=== PATIENT | male | born 1975 | race Caucasian/White ===

== ENCOUNTER 2018-06-10 20:04 | Inpatient (IN) | payer OTHER ==
[2018-06-10 20:26] LABS: ADD MAN DIFF? NO
[2018-06-10 20:31] LABS: WHITE BLOOD COUNT 9.8 10^3/ul (4.8-10.8)
[2018-06-10 20:31] LABS: BASOPHILS % 0.3 % (0.0-2.0); EOSINOPHILS % 0.4 % (0.0-7.0); HEMATOCRIT 44.5 % (42.0-52.0); HEMOGLOBIN 15.2 g/dl (14.0-18.0); LYMPHOCYTES # 0.7 10^3/ul (0.8-2.9); LYMPHOCYTES % 7.4 % (15.0-51.0); MEAN CORPUSCULAR HEMOGLOBIN 29.3 pg (29.0-33.0); MEAN CORPUSCULAR HGB CONC 34.2 g/dl (32.0-37.0); MEAN CORPUSCULAR VOLUME 85.9 fl (82.0-101.0); MEAN PLATELET VOLUME 11.4 fl (7.4-10.4); MONOCYTE # 0.3 10^3/ul (0.3-0.9); MONOCYTES % 2.7 % (0.0-11.0); NEUTROPHIL # 8.7 10^3/ul (1.6-7.5); NEUTROPHILS % 88.9 % (39.0-77.0); PLATELET COUNT 122 10^3/UL (140-415); POSITIVE DIFF @See below; RED BLOOD COUNT 5.18 10^6/ul (4.70-6.10)
[2018-06-10] MEDS: SODIUM CHLORIDE 0.9% 1L BAG IV* (20:33)
[2018-06-10] MEDS: CEFEPIME 2GM/50 ML (PMX) 50 ML IVPB (20:34)
[2018-06-10] MEDS: ONDANSETRON 4 MG INJ IV (20:37)
[2018-06-10 20:48] LABS: ALANINE AMINOTRANSFERASE 116 IU/L (13-69); ALBUMIN 4.3 g/dl (3.3-4.9); ALBUMIN/GLOBULIN RATIO 1.26; ALKALINE PHOSPHATASE 112 IU/L (42-121); ANION GAP 16 (8-16); ASPARTATE AMINO TRANSFERASE 88 IU/L (15-46); BILIRUBIN,INDIRECT 1.4 mg/dl (0-1.1); BILIRUBIN,TOTAL 1.4 mg/dl (0.2-1.3); BLOOD UREA NITROGEN 14 mg/dl (7-20); CALCIUM 8.9 mg/dl (8.4-10.2); CARBON DIOXIDE 23 mmol/L (21-31); CHLORIDE 100 mmol/L (97-110); CREATININE 0.93 mg/dl (0.61-1.24); GLUCOSE 109 mg/dl (70-220); POTASSIUM 3.9 mmol/L (3.5-5.1); SODIUM 135 mmol/L (135-144); TOTAL PROTEIN 7.7 g/dl (6.1-8.1)
[2018-06-10 20:55] LABS: INR 1.05; PROTIME 13.8 Sec (11.9-14.9); PT RATIO 1.1
[2018-06-10 20:56] LABS: PARTIAL THROMBOPLASTIN TIME 30.2 Sec (25.0-35.0)
[2018-06-10 20:58] LABS: TROPONIN-I < 0.010 ng/ml (0.000-0.120)
[2018-06-10] MEDS: KETOROLAC 30 MG INJ IV (20:59)
[2018-06-10 21:07] LABS: LACTIC ACID 1.4 mmol/L (0.5-2.0)
[2018-06-10 22:02] LABS: LIPASE 66 U/L (23-300)
[2018-06-10 22:41] LABS: LACTIC ACID 0.9 mmol/L (0.5-2.0)
[2018-06-10] MEDS ORDERED: NACL 0.9% 3 ML SYG IV (23:00)
[2018-06-10] MEDS ORDERED: ONDANSETRON 4 MG INJ IV (23:00)
[2018-06-10] MEDS ORDERED: LORAZEPAM 2 MG INJ IV (23:00)
[2018-06-10] MEDS ORDERED: DOCUSATE SODIUM 100 MG CAP PO (23:00)
[2018-06-10] MEDS ORDERED: BISACODYL (EC) 5 MG TAB PO (23:00)
[2018-06-10] MEDS: metroNIDAZOLE 500 MG/NS (PMX) 100 ML IVPB (23:12)
[2018-06-11] MEDS: ACETAMINOPHEN 325 MG TAB PO (01:01)
[2018-06-11 01:29] LABS: LACTIC ACID 0.9 mmol/L (0.5-2.0)
[2018-06-11] MEDS: SOD CHLORIDE 0.9% 500 ML IV (01:39)
[2018-06-11] MEDS: SOD CHLORIDE 0.9% 1,000 ML IV ×4 (01:40→19:48)
[2018-06-11] MEDS: KETOROLAC 30 MG INJ IV (02:14)
[2018-06-11] MEDS: PIPER-TAZO 3.375 GM IV (PMX) 100 ML IVPB ×4 (02:14→19:45)
[2018-06-11 05:56] LABS: HAAIG REFLEX REFLEX FILED
[2018-06-11 06:00] LABS: WHITE BLOOD COUNT 7.5 10^3/ul (4.8-10.8)
[2018-06-11 06:00] LABS: HEMATOCRIT 36.4 % (42.0-52.0); HEMOGLOBIN 12.2 g/dl (14.0-18.0); MEAN CORPUSCULAR HEMOGLOBIN 29.6 pg (29.0-33.0); MEAN CORPUSCULAR HGB CONC 33.5 g/dl (32.0-37.0); MEAN CORPUSCULAR VOLUME 88.3 fl (82.0-101.0); MEAN PLATELET VOLUME 11.9 fl (7.4-10.4); PLATELET COUNT 102 10^3/UL (140-415); POSITIVE DIFF @See below; RED BLOOD COUNT 4.12 10^6/ul (4.70-6.10); RED CELL DISTRIBUTION WIDTH 13.2 % (11.5-14.5)
[2018-06-11 06:32] LABS: ADD MAN DIFF? YES
[2018-06-11 06:44] LABS: GAMMA GLUTAMYL TRANSPEPTIDASE 113 IU/L (0-50)
[2018-06-11 07:06] LABS: ALANINE AMINOTRANSFERASE 82 IU/L (13-69); ALBUMIN/GLOBULIN RATIO 1.07; ALKALINE PHOSPHATASE 71 IU/L (42-121); ANION GAP 13 (8-16); ASPARTATE AMINO TRANSFERASE 58 IU/L (15-46); BILIRUBIN,INDIRECT 1.1 mg/dl (0-1.1); BILIRUBIN,TOTAL 1.1 mg/dl (0.2-1.3); BLOOD UREA NITROGEN 17 mg/dl (7-20); CALCIUM 7.9 mg/dl (8.4-10.2); CARBON DIOXIDE 24 mmol/L (21-31); CHLORIDE 107 mmol/L (97-110); CHOL/HDL RATIO 5.9 RATIO; CHOLESTEROL 118 mg/dl (100-200); GLUCOSE 102 mg/dl (70-220); HDL CHOLESTEROL 20 mg/dl (27-67); LDL CHOLESTEROL,CALCULATED 60 mg/dl; MAGNESIUM 1.8 mg/dl (1.7-2.5); POTASSIUM 4.3 mmol/L (3.5-5.1); SODIUM 140 mmol/L (135-144); TOTAL PROTEIN 5.8 g/dl (6.1-8.1); TRIGLYCERIDES 189 mg/dl (0-149)
[2018-06-11 07:12] LABS: HEPATITIS B SURFACE ANTIGEN NEGATIVE (NEGATIVE)
[2018-06-11 07:30] LABS: HEPATITIS B CORE ANTIBODY NEGATIVE (NEGATIVE); HEPATITIS C VIRAL ANTIBODY NEGATIVE (NEGATIVE)
[2018-06-11 07:48] LABS: ANISOCYTOSIS 1+ (0-0); BAND NEUTROPHILS % (M) 27 % (0-4); BURR CELLS 1+ (0-0); GIANT THROMBO% (M) 1 % (0-0); LYMPHOCYTES #M 0.2 10^3/ul (0.8-2.9); LYMPHOCYTES % (M) 3 % (15-51); MONOCYTE #M 0.4 10^3/ul (0.3-0.9); MONOCYTES % (M) 6 % (0-11); PLATELET ESTIMATE DECREASED; POIKILOCYTOSIS 1+ (0-0); POLYCHROMASIA 1+ (0-0); SEG NEUT #M 4.9 10^3/ul (1.6-7.5); SEGMENTED NEUTROPHILS (M) % 63 % (39-77); SMUDGE%M 2 % (0-0)
[2018-06-11 08:00] LABS: HEMOGLOBIN A1C 5.3 % (0-5.9)
[2018-06-11] MEDS: NICOTINE (14 MG/24 HR) PATCH TRANSDERM (09:48)
[2018-06-11] MEDS: NICOTINE POLACRILEX 2 MG GUM BUCCAL (09:49)
[2018-06-11] MEDS: HYDROmorphONE 0.5 MG/0.5 ML SYG IV (09:54)
[2018-06-11 13:18] LABS: ADD UMIC YES; UR ASCORBIC ACID NEGATIVE (NEGATIVE); UR BILIRUBIN (Dip) 1+ mg/dL (NEGATIVE); UR BLOOD (Dip) NEGATIVE (NEGATIVE); UR CLARITY CLEAR (CLEAR); UR COLOR AMBER (YELLOW); UR GLUCOSE (Dip) NEGATIVE (NEGATIVE); UR KETONES (Dip) 1+ mg/dL (NEGATIVE); UR LEUKOCYTE ESTERASE (Dip) NEGATIVE Leu/ul (NEGATIVE); UR MUCUS FEW /HPF (NONE SEEN); UR NITRITE (Dip) NEGATIVE (NEGATIVE); UR RBC 4 /HPF (0-5); UR TOTAL PROTEIN (Dip) 2+ mg/dl (NEGATIVE); UR UROBILINOGEN (Dip) 2+ mg/dL (NEGATIVE); UR WBC 16 /HPF (0-5)
[2018-06-11] MEDS: ACETAMINOPHEN 1000MG/100ML IV 100 ML IVPB (14:40)
[2018-06-12] MEDS: PIPER-TAZO 3.375 GM IV (PMX) 100 ML IVPB ×5 (00:41→23:32)
[2018-06-12] MEDS: SOD CHLORIDE 0.9% 1,000 ML IV ×3 (06:17→23:39)
[2018-06-12] MEDS: NICOTINE (14 MG/24 HR) PATCH TRANSDERM (07:59)
[2018-06-12] MEDS: ACETAMINOPHEN 325 MG TAB PO (11:15)
[2018-06-12] MEDS: IBUPROFEN 400 MG TAB PO (12:07)
[2018-06-12 13:09] LABS: ADD MAN DIFF? NO
[2018-06-12 13:12] LABS: WHITE BLOOD COUNT 6.4 10^3/ul (4.8-10.8)
[2018-06-12 13:12] LABS: BASOPHILS % 0.5 % (0.0-2.0); EOSINOPHILS # 0.2 10^3/ul (0.0-0.5); EOSINOPHILS % 2.6 % (0.0-7.0); HEMATOCRIT 33.5 % (42.0-52.0); HEMOGLOBIN 11.1 g/dl (14.0-18.0); LYMPHOCYTES # 1.1 10^3/ul (0.8-2.9); LYMPHOCYTES % 17.5 % (15.0-51.0); MEAN CORPUSCULAR HEMOGLOBIN 28.5 pg (29.0-33.0); MEAN CORPUSCULAR HGB CONC 33.1 g/dl (32.0-37.0); MEAN CORPUSCULAR VOLUME 85.9 fl (82.0-101.0); MEAN PLATELET VOLUME 11.8 fl (7.4-10.4); MONOCYTE # 0.7 10^3/ul (0.3-0.9); MONOCYTES % 11.5 % (0.0-11.0); NEUTROPHIL # 4.3 10^3/ul (1.6-7.5); NEUTROPHILS % 66.8 % (39.0-77.0); PLATELET COUNT 112 10^3/UL (140-415); RED CELL DISTRIBUTION WIDTH 13.6 % (11.5-14.5)
[2018-06-12 13:33] LABS: ALANINE AMINOTRANSFERASE 90 IU/L (13-69); ALBUMIN 3.1 g/dl (3.3-4.9); ALKALINE PHOSPHATASE 157 IU/L (42-121); ANION GAP 10 (8-16); ASPARTATE AMINO TRANSFERASE 79 IU/L (15-46); BLOOD UREA NITROGEN 8 mg/dl (7-20); CALCIUM 8.1 mg/dl (8.4-10.2); CARBON DIOXIDE 23 mmol/L (21-31); CHLORIDE 108 mmol/L (97-110); CREATININE 0.63 mg/dl (0.61-1.24); GLUCOSE 100 mg/dl (70-220); POTASSIUM 3.8 mmol/L (3.5-5.1); SODIUM 137 mmol/L (135-144); TOTAL PROTEIN 5.9 g/dl (6.1-8.1)
[2018-06-12] MEDS ORDERED: HYDROmorphONE 2 MG TAB PO (17:30)
[2018-06-13] MEDS: IBUPROFEN 400 MG TAB PO (01:06)
[2018-06-13] MEDS: PIPER-TAZO 3.375 GM IV (PMX) 100 ML IVPB (06:29)
[2018-06-13] MEDS: NICOTINE (14 MG/24 HR) PATCH TRANSDERM (07:29)
[2018-06-13 09:14] LABS: ADD MAN DIFF? NO
[2018-06-13 09:23] LABS: BASOPHILS % 0.3 % (0.0-2.0); EOSINOPHILS # 0.3 10^3/ul (0.0-0.5); EOSINOPHILS % 4.8 % (0.0-7.0); HEMATOCRIT 33.5 % (42.0-52.0); HEMOGLOBIN 11.1 g/dl (14.0-18.0); LYMPHOCYTES # 1.4 10^3/ul (0.8-2.9); MEAN CORPUSCULAR HEMOGLOBIN 28.8 pg (29.0-33.0); MEAN CORPUSCULAR HGB CONC 33.1 g/dl (32.0-37.0); MEAN PLATELET VOLUME 12.4 fl (7.4-10.4); MONOCYTE # 0.7 10^3/ul (0.3-0.9); MONOCYTES % 10.5 % (0.0-11.0); NEUTROPHIL # 4.2 10^3/ul (1.6-7.5); NEUTROPHILS % 62.7 % (39.0-77.0); PLATELET COUNT 142 10^3/UL (140-415); RED BLOOD COUNT 3.85 10^6/ul (4.70-6.10); RED CELL DISTRIBUTION WIDTH 13.7 % (11.5-14.5)
[2018-06-13 09:23] LABS: WHITE BLOOD COUNT 6.7 10^3/ul (4.8-10.8)
[2018-06-13 10:10] LABS: ANION GAP 9 (8-16); BLOOD UREA NITROGEN 10 mg/dl (7-20); CALCIUM 8.3 mg/dl (8.4-10.2); CARBON DIOXIDE 24 mmol/L (21-31); CHLORIDE 111 mmol/L (97-110); CREATININE 0.68 mg/dl (0.61-1.24); GLUCOSE 100 mg/dl (70-220); SODIUM 140 mmol/L (135-144)
== END 2018-06-13 12:00 | disposition home or self-care (01) | DRG 872 ==
LOC: MS4 22:42 → E/R 20:04
DX: A41.9 Sepsis, unspecified organism (principal); K81.0 Acute cholecystitis; Z72.0 Tobacco use; E80.6 Other disorders of bilirubin metabolism; R51 Headache
CPT/HCPCS: 36415; 70450; 71045; 74176; 76705; 78227; 80048; 80053; 80061; 81001; 82977; 83036; 83605; 83690; 83735; 84443; 84484; 85025; 85610; 85730; 86704; 86709; 86803; 87040; 87086; 87340; 93005; 96365; 96375; 99291-25